=== PATIENT | female | born 1945 | race Caucasian/White ===

== ENCOUNTER 2020-05-21 11:36 | Outpatient (CLI) | payer MEDICARE, BC ==
[2020-05-21 13:01] LABS: BASOPHILS % (AUTO) 0.2 % (0.0-2.0); EOSINOPHILS % (AUTO) 1.1 % (0.0-6.0); HEMATOCRIT 38 % (33-45); LYMPHOCYTES # (AUTO) 0.9 /CMM (0.8-4.8); LYMPHOCYTES % (AUTO) 8.9 % (20.0-44.0); MEAN CORPUSCULAR HGB CONC 34 g/dl (31.0-36.0); MEAN CORPUSCULAR VOLUME 90 fL (82-100); MONOCYTES # (AUTO) 0.6 /CMM (0.1-1.30); MONOCYTES % (AUTO) 5.8 % (2.0-12.0); NEUTROPHILS # (AUTO) 8.3 /CMM (1.8-8.9); PLATELET COUNT (AUTO) 208 /CMM (150-450); RED BLOOD CELL COUNT(AUTO) 4.24 MIL/uL (4.0-5.2); WHITE BLOOD COUNT (AUTO) 9.9 K/uL (4.3-11.0)
[2020-05-21 13:04] LABS: BILIRUBIN,URINE NEGATIVE (NEGATIVE); COLOR,URINE YELLOW (YELLOW); LEUKOCYTE ESTERASE ,URINE NEGATIVE (NEGATIVE); NITRITE, URINE NEGATIVE (NEGATIVE); PH,URINE 7.5 (5.0-8.0); PROTEIN,URINE TRACE mg/dl (NEGATIVE); UGLUCOSE NEGATIVE (NEGATIVE); UROBILINOGEN,URINE 0.2 EU/dL (0.2)
[2020-05-21 13:55] LABS: CREATININE, URINE 133.9 MG/DL (30.0-125.0); URINE TOTAL PROTEIN 39.7 mg/dL (0-11.9)
[2020-05-21 14:02] LABS: BACTERIA,URINE Rare /HPF (None Seen); SQUAMOUS EPITHELIAL CELL,UR Few /HPF (None Seen); URINE AMORPHOUS PHOSPHATES Many /HPF (None Seen); WBC,URINE 0-2 /HPF (0-3)
[2020-05-21 14:04] LABS: BILIRUBIN,TOTAL 0.5 mg/dL (0.2-1.0); CALCIUM, SERUM 8.7 mg/dL (8.5-10.1); CREATININE 0.9 mg/dL (0.6-1.3); MAGNESIUM 1.5 mg/dL (1.8-2.4); PHOSPHORUS 3.5 mg/dL (2.5-4.9); POTASSIUM 3.5 mmol/L (3.5-5.1); TOTAL PROTEIN, SERUM 7.8 g/dL (6.4-8.2)
[2020-05-27] MEDS ORDERED: METR500T PO (18:17)
[2020-05-27] MEDS ORDERED: CIPR500S2 PO (18:17)
== END 2020-05-21 23:59 | disposition home or self-care (01) ==
LOC: MSC 11:36
PROVIDERS: ATTEND Internal Medicine
DX: R31.9 Hematuria, unspecified (principal); I10 Essential (primary) hypertension
CPT/HCPCS: 36415; 74176; 80053; 81001; 82570; 83735; 84100; 84155; 85025; G0463

== ENCOUNTER 2020-05-22 08:59 | Outpatient (CLI) | payer MEDICARE, BC | END 2020-05-22 23:59 | disposition home or self-care (01) | LOC: US 08:59 | PROVIDERS: ATTEND Internal Medicine | DX: S22.089A Unspecified fracture of T11-T12 vertebra, initial encounter for closed fracture (principal); S22.42XA Multiple fractures of ribs, left side, initial encounter for closed fracture; M47.815 Spondylosis without myelopathy or radiculopathy, thoracolumbar region; M85.88 Other specified disorders of bone density and structure, other site; M41.86 Other forms of scoliosis, lumbar region; I51.7 Cardiomegaly; N28.1 Cyst of kidney, acquired; X58.XXXA Exposure to other specified factors, initial encounter; Y93.89 Activity, other specified; Y92.89 Other specified places as the place of occurrence of the external cause; Y99.8 Other external cause status | CPT/HCPCS: 71100-TC; 72074-TC; 72100-TC; 76770-TC ==

== ENCOUNTER 2020-05-25 00:14 | Inpatient (IN) | payer MEDICARE, BC ==
[~2020-05-25] VITALS: Ht 162.6 cm; Wt 81.6 kg
--- NOTE | 2020-05-25 00:33 | NUR ---
PATIENT CAME TO THE ER BED 10 C/O RIGHT LOWER BACK PAIN. PATIENT STATES THAT IT HAD OCCURRED 5x DAYS AGO, BUT WORSENING TODAY. PATIETN STATES THAT WHEN SHE LIES DOWN, SHE FEELS MORE RELIEVED. PATIENT ALSO STATES THAT SHE HAS A CT SCAN AND XRAY ON MONDAY AND THEY FOUND NOTHING. PATIENT IS AMBULATORY WITH A STEADY GAIT. PATIENT IS AAOX4. NO SOB. BREATHING EVENLY AND UNLABORED ON ROOM AIR. CONNECTED TO THE MONTIOR.
[2020-05-25 01:15] LABS: BASOPHILS # (AUTO) 0.1 /CMM (0.0-0.2); BASOPHILS % (AUTO) 0.5 % (0.0-2.0); HEMATOCRIT 35 % (33-45); LYMPHOCYTES # (AUTO) 1.3 /CMM (0.8-4.8); LYMPHOCYTES % (AUTO) 13.6 % (20.0-44.0); MEAN CORPUSCULAR HGB CONC 34 g/dl (31.0-36.0); MEAN CORPUSCULAR VOLUME 90 fL (82-100); MONOCYTES # (AUTO) 1.1 /CMM (0.1-1.30); MONOCYTES % (AUTO) 11.6 % (2.0-12.0); NEUTROPHILS # (AUTO) 6.7 /CMM (1.8-8.9); NEUTROPHILS % (AUTO) 71.3 % (43.0-81.0); PLATELET COUNT (AUTO) 212 /CMM (150-450); WHITE BLOOD COUNT (AUTO) 9.4 K/uL (4.3-11.0)
[2020-05-25 01:29] LABS: BILIRUBIN,DIRECT 0.1 mg/dL (0.0-0.2); BILIRUBIN,TOTAL 0.5 mg/dL (0.2-1.0); CREATININE 0.7 mg/dL (0.6-1.3); POTASSIUM 2.9 mmol/L (3.5-5.1); TOTAL PROTEIN, SERUM 6.5 g/dL (6.4-8.2)
[2020-05-25 01:29] LABS: BILIRUBIN,URINE NEGATIVE (NEGATIVE); COLOR,URINE YELLOW (YELLOW); LEUKOCYTE ESTERASE ,URINE NEGATIVE (NEGATIVE); NITRITE, URINE NEGATIVE (NEGATIVE); PROTEIN,URINE TRACE mg/dl (NEGATIVE); UGLUCOSE NEGATIVE (NEGATIVE); UROBILINOGEN,URINE 0.2 EU/dL (0.2)
[2020-05-25 01:32] LABS: BACTERIA,URINE None seen /HPF (None Seen); SQUAMOUS EPITHELIAL CELL,UR Few /HPF (None Seen); WBC,URINE 0-2 /HPF (0-3)
--- NOTE | 2020-05-25 01:39 | NUR ---
YECENIA (DAUGHTER) CONTACT INFORMATION:[phone]
[2020-05-25] MEDS ORDERED: IV NS 0.9% 250 ML IV ONE (01:42)
[2020-05-25] MEDS ORDERED: IOHEXOL-300 100 ML VIAL IV ONE (01:42)
--- NOTE | 2020-05-25 01:56 | NUR ---
PATIENT SENT TO CT.
[2020-05-25] MEDS ORDERED: CIPROFLOXACIN IV RTU 400 MG in PREMIX 1 EA IV ONE (03:30)
[2020-05-25] MEDS ORDERED: FLAGYL/NS RTU 500 MG/100 ML PIGGYBACK IV ONE (03:30)
[2020-05-25] MEDS ORDERED: METRONIDAZOLE 500MG/ NS 100ML 100 ML IV ONE (03:31)
[2020-05-25] MEDS ORDERED: CIPROFLOXACIN IV RTU 200 ML IV ONE (03:31)
[2020-05-25] MEDS ORDERED: IV NS 0.9% 1,000 ML BAG IV ONE (04:00)
[2020-05-25] MEDS ORDERED: Z GUARD REMEDY 2 OZ OINT TP PRN (05:00)
[2020-05-25] MEDS ORDERED: ONDANSETRON HCL/PF 4 MG/2 ML VIAL IVP PRN (05:00)
[2020-05-25] MEDS ORDERED: MAG HYDROX/AL HYDROX/SIMETH 30 ML UDC PO PRN (05:00)
[2020-05-25] MEDS ORDERED: HYDROCODONE/APAP 5/325MG TABLET ONE (05:37)
[2020-05-25] MEDS: HYDROCODONE/APAP 5/325MG TABLET PO PRN ×2 (05:39→14:15)
[2020-05-25] MEDS ORDERED: OLME1TAB22 PO (06:16)
[2020-05-25] MEDS ORDERED: ATEN25TA PO (06:16)
--- NOTE | 2020-05-25 06:22 | NUR ---
REPORT GIVEN TO LEONARD CHAPA FOR VALERIE.
--- NOTE | 2020-05-25 06:43 | NUR ---
PATIENT TAKEN UP TO ASSIGNED ROOM FOR VALERIE.
--- NOTE | 2020-05-25 07:36 | NUR ---
MS RN OPENING NOTES RECEIVED PATIENT; NEW ADMISSION. PATIENT AT THIS TIME IN BED, AWAKE, A/O X4. PATIENT ON ROOM AIR; BREATHING EVEN AND UNLABORED. COMPLAINING OF BACK PAIN AT THIS TIME; PRN PAIN MEDICATION WAS GIVEN BY NIGHT NURSE. SAFETY PRECAUTIONS IN PLACE; BED IN LOW POSITION AND LOCKED, RAILS UP X2, CALL LIGHT WITHIN REACH. WILL CONTINUE TO MONITOR PATIENT.
[2020-05-25] MEDS ORDERED: ATOR40TA PO (07:48)
[2020-05-25] MEDS: IV NS 0.9% 1,000 ML IV PRN (09:26)
[2020-05-25] MEDS: METRONIDAZOLE 500MG/ NS 100ML 500 MG in PREMIX 1 EA IV SCH ×3 (09:58→20:49)
[2020-05-25] MEDS: POTASSIUM CHLORIDE 20 MEQ POWDER PACKET PO SCH ×3 (11:55→14:14)
--- NOTE | 2020-05-25 12:25 | NUR ---
MS RN NOTES PATIENT COMPLAINING OF NAUSEA; NO EMESIS PRESENT. PRN ZOFRAN ADMINISTERED.
--- NOTE | 2020-05-25 14:17 | NUR ---
MS RN NOTES PATIENT COMPLAINING OF BACK PAIN AND HEADACHE; REQUESTING PAIN MEDICATION. PRN NORCO ADMINISTERED.
[2020-05-25 15:09] LABS: CALCIUM, SERUM 7.5 mg/dL (8.5-10.1); CREATININE 0.7 mg/dL (0.6-1.3); POTASSIUM 3.3 mmol/L (3.5-5.1)
[2020-05-25] MEDS: CIPROFLOXACIN IV RTU 400 MG in PREMIX 1 EA IV SCH (15:20)
[2020-05-25 16:00] VITALS: BP 129/56
[2020-05-25] MEDS: ATORVASTATIN 40 MG TABLET PO SCH (17:28)
[2020-05-25] MEDS: ATENOLOL 25 MG TABLET PO SCH (17:29)
--- NOTE | 2020-05-25 19:10 | NUR ---
PT AMBULATED TO BATHROOM WITH A STEADY GAIT. ABDOMEN SOFT, DISTENDED NO PAIN ON PALPATION. RESPIRATIONS EVEN AND UNLABORED. NO C/O DYSPNEA OR SOB. SKIN INTACT. ENCOURAGED TO CALL FOR ASSIST. CALL LIGHT AND PHONE WITHIN REACH.
--- NOTE | 2020-05-25 19:12 | NUR ---
MS RN CLOSING NOTES PATIENT REMAINS IN BED, AWAKE, A/O X4. PATIENT ON ROOM AIR; BREATHING EVEN AND UNLABORED. PAIN TREATED WITH PRN NORCO. RAC G # 18 PRESENT AND INTACT INFUSING NS @ 75 MLS/HR. ALL NEEDS ATTENDED THROUGHOUT THE DAY. SAFETY PRECAUTIONS IN PLACE; BED IN LOW POSITION AND LOCKED, RAILS UP X2, CALL LIGHT WITHIN REACH. WILL ENDORSE TO CORRUGATOR SUPERVISOR NURSE.
[2020-05-25 20:00] VITALS: BP 136/66
[2020-05-25] MEDS: ACETAMINOPHEN 325 MG TABLET PO PRN (22:41)
[2020-05-26] MEDS: CIPROFLOXACIN IV RTU 400 MG in PREMIX 1 EA IV SCH ×2 (04:04→15:57)
[2020-05-26] MEDS: IV NS 0.9% 1,000 ML IV PRN (04:05)
--- NOTE | 2020-05-26 05:35 | NUR ---
PRIMARY ASSESSMENT UNCHANGED. NO BM NOTED, ABD REMAINS SOFT AND DISTENDED WITH NO PAIN ON PALPATION. PT C/O HEADACHE AND MEDICATED WITH TYLENOL. DENIES PAIN AT THIS TIME. NS @ 75 ML/HR INFUSING AND GIVEN ABX ORDERED. PT STABLE AT THIS TIME
[2020-05-26] MEDS: METRONIDAZOLE 500MG/ NS 100ML 500 MG in PREMIX 1 EA IV SCH ×3 (05:44→20:24)
[2020-05-26 05:58] LABS: URINE SODIUM, RANDOM 61 mmol/l (40-220)
[2020-05-26 06:48] LABS: BASOPHILS % (AUTO) 0.5 % (0.0-2.0); HEMATOCRIT 33 % (33-45); HEMOGLOBIN 11.3 g/dL (11.5-14.8); LYMPHOCYTES # (AUTO) 0.9 /CMM (0.8-4.8); LYMPHOCYTES % (AUTO) 13.3 % (20.0-44.0); MEAN CORPUSCULAR HGB CONC 35 g/dl (31.0-36.0); MEAN CORPUSCULAR VOLUME 90 fL (82-100); MONOCYTES # (AUTO) 0.9 /CMM (0.1-1.30); MONOCYTES % (AUTO) 13.3 % (2.0-12.0); NEUTROPHILS # (AUTO) 4.6 /CMM (1.8-8.9); NEUTROPHILS % (AUTO) 66.9 % (43.0-81.0); PLATELET COUNT (AUTO) 255 /CMM (150-450); RED BLOOD CELL COUNT(AUTO) 3.61 MIL/uL (4.0-5.2); WHITE BLOOD COUNT (AUTO) 6.9 K/uL (4.3-11.0)
[2020-05-26 07:15] LABS: CALCIUM, SERUM 7.7 mg/dL (8.5-10.1); CREATININE 0.7 mg/dL (0.6-1.3); MAGNESIUM 1.9 mg/dL (1.8-2.4); PHOSPHORUS 1.9 mg/dL (2.5-4.9); POTASSIUM 3.2 mmol/L (3.5-5.1)
[2020-05-26 07:25] LABS: THYROID STIMULATING HORMONE 1.496 uIU/mL (0.358-3.74); URIC ACID 2.7 mg/dL (2.6-7.2)
[2020-05-26 08:00] VITALS: BP 145/76
[2020-05-26] MEDS ORDERED: POTASSIUM CHLORIDE 20 MEQ TAB.PRT.SR PO ONE (09:00)
--- NOTE | 2020-05-26 10:00 | NUR ---
m/s assembly machine set up mechanic: notes pt tolerated clear liquid diet, may advance diet as tolerated per dr. stein. pt for full liquid diet for lunch. pt verbalized understanding.
[2020-05-26] MEDS: ACETAMINOPHEN 325 MG TABLET PO PRN (12:06)
[2020-05-26] MEDS ORDERED: K PHOS NEUTRAL 250 MG TABLET PO ONE (13:00)
--- NOTE | 2020-05-26 13:00 | NUR ---
m/s glaze supervisor: notes pt tolerated full liquid diet. no c/o n/v or any discomfort. instructed to call for assistance.
[2020-05-26] MEDS: HYDROCODONE/APAP 5/325MG TABLET PO PRN ×2 (14:23→21:00)
[2020-05-26 16:00] VITALS: BP 131/68
[2020-05-26] MEDS: ATORVASTATIN 40 MG TABLET PO SCH (17:28)
[2020-05-26] MEDS: ATENOLOL 25 MG TABLET PO SCH (17:29)
--- NOTE | 2020-05-26 18:00 | NUR ---
m/s reception: notes pt tolerated soft diet. no c/o n/v or any abdominal discomfort. instructed to call for assistance. will continue to monitor.
--- NOTE | 2020-05-26 19:10 | NUR ---
m/s house mover supervisor: notes report given to galdino (tena) for continuity of care.
--- NOTE | 2020-05-26 19:39 | NUR ---
MS RN OPENING NOTES PATIENT A/OX4; ABLE TO MAKE NEEDS KNOWN. TOLERATING ROOM AIR WELL. C/O BACK PAIN WILL FOLLOW UP AND ADMINISTER PAIN MEDICATIONS ORDERED IF REQUESTED. IV #18G TO RAC; PATENT AND INTACT; NS AT 75ML/HR. SAFETY MEASURES IN PLACE; BED IN LOWEST LOCKED POSITION, SIDE RAILS UPX2, CALL LIGHT WITHIN EASY REACH. WILL CONTINUE PLAN OF CARE.
[2020-05-26 20:00] VITALS: BP 150/72
--- NOTE | 2020-05-26 21:00 | NUR ---
MS RN NOTES - PAIN PATIENT C/O 08/10 BACK PAIN. ADMINISTERED NORCO 5-325MG PO. WILL CONTINUE TO ASSESS FOR PAIN. NOTED WITH O2 SAT AT 90% ON ROOM AIR. PUT ON O2 AT 2LPM VIA NASAL CANNULA. WILL CONTINUE TO MONITOR.
[2020-05-26] MEDS: MAGNESIUM HYDROXIDE 30 ML UDC PO PRN (21:40)
--- NOTE | 2020-05-26 21:40 | NUR ---
MS RN NOTED - CONSTIPATION PATIENT OF NOT HAVING BM IN MORE THAN 7 DAYS, AND REQUESTING FOR ADDITIONAL MEDICATION. INFORMED FRANCES SMITH RUBBER MILL TENDER WITH NO NEW ORDERS. ADMINISTERED MOM 30ML PO ORDERED. INFORMED PATIENT AND PATIENT'S DAUGHTER
[2020-05-27] MEDS: CIPROFLOXACIN IV RTU 400 MG in PREMIX 1 EA IV SCH ×2 (03:10→16:00)
[2020-05-27] MEDS: HYDROCODONE/APAP 5/325MG TABLET PO PRN (04:10)
[2020-05-27] MEDS: METRONIDAZOLE 500MG/ NS 100ML 500 MG in PREMIX 1 EA IV SCH ×2 (04:52→17:37)
[2020-05-27] MEDS: IV NS 0.9% 1,000 ML IV PRN (06:55)
[2020-05-27 07:12] LABS: BASOPHILS % (AUTO) 0.6 % (0.0-2.0); HEMATOCRIT 35 % (33-45); HEMOGLOBIN 11.9 g/dL (11.5-14.8); LYMPHOCYTES % (AUTO) 12.8 % (20.0-44.0); MEAN CORPUSCULAR HGB CONC 34 g/dl (31.0-36.0); MEAN CORPUSCULAR VOLUME 89 fL (82-100); MONOCYTES % (AUTO) 12.9 % (2.0-12.0); NEUTROPHILS # (AUTO) 5.4 /CMM (1.8-8.9); NEUTROPHILS % (AUTO) 68.7 % (43.0-81.0); PLATELET COUNT (AUTO) 285 /CMM (150-450); RED BLOOD CELL COUNT(AUTO) 3.88 MIL/uL (4.0-5.2); WHITE BLOOD COUNT (AUTO) 7.8 K/uL (4.3-11.0)
--- NOTE | 2020-05-27 07:39 | NUR ---
MS RN OPENING NOTES PATIENT A/OX4; ABLE TO MAKE NEEDS KNOWN. TOLERATING ROOM AIR WELL. C/O BACK PAIN WILL FOLLOW UP AND ADMINISTER PAIN MEDICATIONS ORDERED IF REQUESTED. IV #18G TO RAC; PATENT AND INTACT; NS AT 75ML/HR. SAFETY MEASURES IN PLACE; BED IN LOWEST LOCKED POSITION, SIDE RAILS UPX2, CALL LIGHT WITHIN EASY REACH. ENDORSE PLAN OF CARE TO ONCOMING RN.
[2020-05-27 07:47] LABS: CALCIUM, SERUM 7.6 mg/dL (8.5-10.1); CREATININE 0.6 mg/dL (0.6-1.3); PHOSPHORUS 2.1 mg/dL (2.5-4.9); POTASSIUM 3.4 mmol/L (3.5-5.1)
--- NOTE | 2020-05-27 07:47 | NUR ---
MS RN NOTE PATIENT RECEIVED IN STABLE CONDITION, VSS, PATIENT REPORTS NO PAIN AT THIS TIME, POC REVIEWED AND TO BE FOLLOWED. BED LOCKED IN LOWEST POSITION, ALL SAFETY MEASURES FOLLOWED. WILL CONTINUE WITH PATIENT'S PLAN OF CARE. END NOTE BN
[2020-05-27 08:00] VITALS: BP 130/70
[2020-05-27] MEDS: DOCUSATE SODIUM 100 MG CAPSULE PO SCH ×2 (10:27→17:37)
[2020-05-27] MEDS: MAGNESIUM HYDROXIDE 30 ML UDC PO PRN (10:45)
[2020-05-27] MEDS: ACETAMINOPHEN 325 MG TABLET PO PRN ×2 (10:58→16:50)
[2020-05-27] MEDS ORDERED: POTASSIUM CHLORIDE 20 MEQ TAB.PRT.SR PO ONE (11:00)
[2020-05-27] MEDS ORDERED: K PHOS NEUTRAL 250 MG TABLET PO ONE (12:00)
[2020-05-27] MEDS ORDERED: NA PHOS,M-B/NA PHOS,DI-BA 1 EA ENEMA RC PRN (15:30)
[2020-05-27 16:50] VITALS: BP 157/93
[2020-05-27] MEDS: ATENOLOL 25 MG TABLET PO SCH (16:50)
[2020-05-27] MEDS: ATORVASTATIN 40 MG TABLET PO SCH (18:00)
[2020-05-27] MEDS ORDERED: METR500T PO (18:17)
[2020-05-27] MEDS ORDERED: CIPR500S2 PO (18:17)
[2020-05-27] MEDS ORDERED: BISACODYL SUPP (10 MG) 10 MG/SUPP.RECT SUPP.RECT RC PRN (19:30)
== END 2020-05-27 18:45 | disposition home or self-care (01) | DRG 392 ==
LOC: ER 00:20 → TELE 04:10 → MED 06:09
PROVIDERS: ADMIT Internal Medicine; ATTEND Family Medicine
DX: K52.9 Noninfective gastroenteritis and colitis, unspecified (principal); E87.1 Hypo-osmolality and hyponatremia; E44.1 Mild protein-calorie malnutrition; I10 Essential (primary) hypertension; K59.00 Constipation, unspecified; E87.6 Hypokalemia; K57.90 Diverticulosis of intestine, part unspecified, without perforation or abscess without bleeding; E11.65 Type 2 diabetes mellitus with hyperglycemia; R74.01 Elevation of levels of liver transaminase levels; E86.1 Hypovolemia; E66.9 Obesity, unspecified; Z68.30 Body mass index [BMI] 30.0-30.9, adult; M41.9 Scoliosis, unspecified; M48.061 Spinal stenosis, lumbar region without neurogenic claudication
CPT/HCPCS: 36415; 71100-TC; 72074-TC; 72100-TC; 72131-TC; 76770-TC; 80048-TC; 80061-TC; 80076-TC; 81001; 83690-TC; 83735-TC; 83935-TC; 84100-TC; 84300-TC; 84443-TC; 84550-TC; 85025-TC; 87081-TC; A4216; C9803; G0378; J0744; J2405; J7030; J7050; Q9967